=== PATIENT | female | born 1965 | race African-American/Black ===

== ENCOUNTER 2018-02-10 13:47 | Emergency (ER) | payer OTHER ==
[~2018-02-10] VITALS: Ht 160 cm; Wt 107.0 kg
[2018-02-10] MEDS ORDERED: IBUPROFEN 600MG TABLET PO STA (14:34)
[2018-02-10 15:32] LABS: BASOPHILS % 1.3 % (0.0-2.0); HEMATOCRIT. 36.8 % (36.0-48.0); HEMOGLOBIN. 12.6 g/dL (12.0-16.0); LYMPHOCYTES % 26.4 % (20.0-50.0); MEAN CORPUSCULAR HEMOGLOBIN 30.7 pg (28.0-32.0); MEAN CORPUSCULAR VOLUME 89.8 fL (81.0-99.0); MEAN PLATELET VOLUME 7.7 fl (7.4-10.4); MONOCYTES % 8.9 % (2.0-8.0); NEUTROPHILS % 61.4 % (40.0-76.0); PLATELET 337 x1000/uL (130-400); RED CELL DISTRIBUTION WIDTH 12.9 % (11.6-14.6)
[2018-02-10 15:37] LABS: CHLORIDE 106 mEq/L (98-107)
[2018-02-10 15:46] LABS: CREATINE KINASE 398 IU/L (26-192)
[2018-02-10 17:23] VITALS: BP 148/72
== END 2018-02-10 17:27 | disposition home or self-care (01) ==
LOC: ER 13:47
DX: S63.501A Unspecified sprain of right wrist, initial encounter (principal); R07.89 Other chest pain; M79.652 Pain in left thigh; I10 Essential (primary) hypertension; V43.52XA Car driver injured in collision with other type car in traffic accident, initial encounter; Y93.89 Activity, other specified; Y92.89 Other specified places as the place of occurrence of the external cause; Y99.8 Other external cause status
CPT/HCPCS: 29125; 36415; 71045; 72170; 73110; 80048; 82550; 84484; 85025; 93005; 99285